=== PATIENT | male | born 1955 | race Caucasian/White ===

== ENCOUNTER 2016-10-21 00:46 | Inpatient (IN) | payer BC, MEDICARE ==
[~2016-10-21 00:46] MED LIST: ANTIVERT25 M1 PO; ATIVAN0.5 MG PO; AUGMENTIN 875-1 EAC2 PO; B 12 PO; BACTROBAN22 GM TP; BENAZEPRIL HCL40 MG PO; CADUET; CIALIS5 MG PO; COLACE100 MG PO; COUMADIN1 M1 PO; COUMADIN2 M1 PO; COUMADIN3 M1 PO; COUMADIN3 MG PO; COUMADIN4 MG; COUMADIN4 MG PO; DELTASONE10 MG PO; DELTASONE5 MG PO; DILAUDID2 MG PO; DILTIAZEM 24HR120 MG PO; DILTIAZEM HCL120 MG PO; DRAMAMINE LESS25 M1 PO; FLAGYL500 MG PO; HYDROCHLOROQUINE; HYDROXYCHLOROQ200 M1 PO; K-TAB ER20 ME1 PO; KEFLEX500 MG PO; LANSOPRAZOLE PO; LANSOPRAZOLE30 MG PO; LEVOCETIRIZINE D5 MG PO; LIPITOR20 MG PO; LIPITOR40 MG; LIPITOR80 M1 PO; LOTENSIN40 M1 PO; LOTENSIN40 MG PO; LOTREL 5/20 MG1 CAP; LOVENOX40 MG/0.4 SQ; LOVENOX60 MG/0.6; MECLIZINE HCL25 M3 PO; METOPROLOL SUC100 M1 PO; METOPROLOL TAR100 MG PO; MIRALAX17 G1 PO; NABUMETONE500 MG PO; NEXIUM20 M1 PO; NEXIUM20 M2 PO; NEXIUM20 MG PO; NEXIUM40 MG; NICODERM21 MG/PATC TD; NORCO 5/325 TAB1 TAB PO; NYSTATIN60 ML PO; PAROXETINE HCL20 MG PO; PAXIL20 MG; PAXIL40 M1 PO; PERCOCET 5/3251 TAB PO; POTASSIUM CHLO20 ME3 PO; PREDNISONE2.5 M1 PO; PREDNISONE2.5 MG PO; PREDNISONE5 M1 PO; PROCTOZONE-HC30 GM RC; RELAFEN500 MG; SIMVASTATIN80 MG PO; TOPROL XL50 MG; TRICOR145 MG; TYLENOL325 MG PO; VITAMIN B12-FO1 EAC1 PO; VITAMIN D 22000 UNIT PO; VITAMIN D2000 UNI1 PO; [UNRECOGNIZED DRUG - OTHER]; [UNRECOGNIZED DRUG - OTHER] TP; [UNRECOGNIZED DRUG - REMARK]; coumadin; nexium; paxil; tricor
[2016-10-21] MEDS ORDERED: VITAMIN B12 PO (01:17)
[2016-10-21] MEDS ORDERED: BISOPROLOL FUMAR5 M1 PO (01:19)
[2016-10-21] MEDS ORDERED: ASPIRIN EC81 MG PO (01:21)
[2016-10-21] MEDS ORDERED: FLECAINIDE ACET50 M1 PO (01:21)
[2016-10-21 01:43] LABS: URINE BILIRUBIN NEGATIVE (NEG); URINE BLOOD SMALL (NEG); URINE GLUCOSE (UA) NEGATIVE (NEG); URINE KETONE NEGATIVE (NEG); URINE LEUKOCYTE ESTERASE NEGATIVE (NEG); URINE NITRITE NEGATIVE (NEG); URINE PROTEIN MODERATE (NEG)
[2016-10-21 01:47] LABS: URINE APPEARANCE CLEAR; URINE COLOR YELLOW
[2016-10-21 01:54] LABS: URINE EPITHELIAL CELLS RARE /[HPF] (0-10); URINE RBC 0-1 /[HPF] (0-5); URINE WBC 0 /[HPF] (0-5)
[2016-10-21 02:00] LABS: BASO % 0.6 % (0-2); BASO ABSOLUTE COUNT 0.1 tho/cmm (0.0-0.2); EOSINOPHIL ABSOLUTE COUNT 0.3 tho/cmm (0.0-0.7); HCT-HEMATOCRIT 45.7 % (36.0-53.5); HGB-HEMOGLOBIN 16.4 gm/dl (13.5-17.0); IMMATURE GRANULOCYTES ABSOLUTE 0.03 tho/cmm (0-0.03); IMMATURE GRANULOCYTES PERCENT 0.3 % (0-0.3); LYMPH % 11.9 % (20-45); LYMPH ABSOLUTE COUNT 1.3 tho/cmm (0.8-4.5); MCH (MEAN CORPUSCULAR HGB) 32.5 pg (28.0-32.0); MCHC MEAN CORPUSCULAR HGB CONC 35.9 % (32.0-36.0); MCV (MEAN CELL VOLUME) 90.5 fl (82.0-96.0); MEAN PLATELET VOLUME 9.8 cmc (9.4-12.4); MONO % 9.2 % (0-12); PLATELET COUNT 177 tho/cmm (150-450); RED BLOOD COUNT 5.05 mil/cmm (4.40-5.70); WHITE BLOOD COUNT 10.6 tho/cmm (4.0-10.0)
[2016-10-21 02:15] LABS: ALB/GLOB RATIO 0.6 (0.8-2.0); ALBUMIN 2.9 g/dl (3.5-5.0); ALKALINE PHOSPHATASE 170 U/L (33-138); ALT/SGPT 18 U/L (12-78); ANION GAP 12 mmol/L (0-20); AST/SGOT 23 U/L (10-40); BILIRUBIN,TOTAL 0.6 mg/dl (0.0-1.5); BLOOD UREA NITROGEN 6 mg/dl (6-24); CALCIUM 9.1 mg/dl (8.5-10.5); CARBON DIOXIDE-VENOUS 26 mmol/L (22-32); CHLORIDE 96 mmol/l (96-110); CREATININE 0.76 mg/dl (0.60-1.30); LIPASE 981 U/L (73-393); POTASSIUM 4.2 mmol/L (3.7-5.1); SODIUM 130 mmol/L (135-145); eGFR VALUE FOR BLACK >90 mL/Min
[2016-10-21 02:37] LABS: GLUCOSE 106 mg/dL (70-110)
[2016-10-21 05:00] LABS: INR 2.6 INR (0.9-1.1); PROTHROMBIN TIME 31.1 SECONDS (9.0-13.6)
[2016-10-21] MEDS ORDERED: PROBIOTIC1 EA10 PO (05:20)
[2016-10-21] MEDS ORDERED: COUMADIN2 M1 PO (09:56)
[2016-10-21 12:35] LABS: MAGNESIUM 1.7 mg/dl (1.8-2.6)
[2016-10-21 12:36] LABS: LIPASE 650 U/L (73-393); SODIUM 138 mmol/L (135-145)
[2016-10-21 12:47] LABS: AMYLASE 83 U/L (20-90); TRIGLYCERIDES 90 mg/dl (<149)
[2016-10-21 13:12] LABS: INR 2.8 INR (0.9-1.1); PROTHROMBIN TIME 33.3 SECONDS (9.0-13.6)
[2016-10-21 13:15] LABS: PROCALCITONIN 0.27 ng/ml (0.05-0.09)
[2016-10-22 04:54] LABS: INR 2.2 INR (0.9-1.1)
[2016-10-22 05:06] LABS: C-REACTIVE PROTEIN 3.9 mg/dl (0-0.9)
[2016-10-22 05:07] LABS: BASO % 0.7 % (0-2); EOS % 4.3 % (0-7); EOSINOPHIL ABSOLUTE COUNT 0.2 tho/cmm (0.0-0.7); HCT-HEMATOCRIT 41.5 % (36.0-53.5); IMMATURE GRANULOCYTES ABSOLUTE 0.01 tho/cmm (0-0.03); IMMATURE GRANULOCYTES PERCENT 0.2 % (0-0.3); LYMPH % 15.2 % (20-45); LYMPH ABSOLUTE COUNT 0.9 tho/cmm (0.8-4.5); MCH (MEAN CORPUSCULAR HGB) 31.7 pg (28.0-32.0); MCV (MEAN CELL VOLUME) 93.9 fl (82.0-96.0); MONO % 7.5 % (0-12); MONOCYTE ABSOLUTE COUNT 0.4 tho/cmm (0.0-1.2); NEUTROPHILS % 72.1 % (40-80); PLATELET COUNT 159 tho/cmm (150-450); RED BLOOD COUNT 4.42 mil/cmm (4.40-5.70); RED CELL DISTRIBUTION WIDTH 14.4 % (12.4-16.4); WHITE BLOOD COUNT 5.6 tho/cmm (4.0-10.0)
[2016-10-22 05:27] LABS: MCHC MEAN CORPUSCULAR HGB CONC 33.7 % (32.0-36.0)
[2016-10-22 05:52] LABS: PROTHROMBIN TIME 25.7 SECONDS (9.0-13.6)
[2016-10-22 10:15] LABS: INR 1.7 INR (0.9-1.1)
[2016-10-22 10:31] LABS: PROTHROMBIN TIME 20.2 SECONDS (9.0-13.6)
[2016-10-22] MEDS ORDERED: APRISO0.375 G1 PO (14:32)
[2016-10-22] MEDS ORDERED: AMBIEN5 M1 PO (14:33)
[2016-12-03] MEDS ORDERED: VITAMIN B-121000 MC1 PO (13:59)
[2016-12-03] MEDS ORDERED: SULFASALAZINE500 M1 PO (14:08)
[2017-01-28] MEDS ORDERED: TYLENOL EXTRA500 M1 PO (15:12)
[2017-01-28] MEDS ORDERED: TYLENOL COLD &1 EAC1 PO (15:13)
== END 2016-10-22 15:37 | DRG 392 ==
LOC: EDMED 00:46 → EMR2 04:07 → 5WD 05:02
PROVIDERS: Emergency Medicine; Nurse Practitioner Family; Registered Nurse; Specialist; ADMIT Family Medicine
PROC: 0DBK8ZX Excision of Ascending Colon, Via Natural or Artificial Opening Endoscopic, Diagnostic (ICD-10-PCS; principal; 2016-10-22)
PROC: 0DBN8ZX Excision of Sigmoid Colon, Via Natural or Artificial Opening Endoscopic, Diagnostic (ICD-10-PCS; 2016-10-22)
PROC: 0DBB8ZX Excision of Ileum, Via Natural or Artificial Opening Endoscopic, Diagnostic (ICD-10-PCS; 2016-10-22)
PROC: 0DBL8ZX Excision of Transverse Colon, Via Natural or Artificial Opening Endoscopic, Diagnostic (ICD-10-PCS; 2016-10-22)
PROC: 30233K1 Transfusion of Nonautologous Frozen Plasma into Peripheral Vein, Percutaneous Approach (ICD-10-PCS; 2016-10-22)
DX: K52.9 Noninfective gastroenteritis and colitis, unspecified (principal); E87.1 Hypo-osmolality and hyponatremia; I10 Essential (primary) hypertension; K57.30 Diverticulosis of large intestine without perforation or abscess without bleeding; D12.2 Benign neoplasm of ascending colon; D12.3 Benign neoplasm of transverse colon; R91.8 Other nonspecific abnormal finding of lung field; N28.1 Cyst of kidney, acquired; N20.0 Calculus of kidney; K86.9 Disease of pancreas, unspecified; R74.8 Abnormal levels of other serum enzymes; F10.10 Alcohol abuse, uncomplicated; Z95.828 Presence of other vascular implants and grafts; Z79.01 Long term (current) use of anticoagulants; Z79.82 Long term (current) use of aspirin; Z79.899 Other long term (current) drug therapy
CPT/HCPCS: J1170; J2405; J3475; J7030; J7050; P9017